=== PATIENT | male | born 1965 | race Caucasian/White ===

== ENCOUNTER 2023-09-18 17:32 | Emergency (ER) | payer OTHER ==
[~2023-09-18] VITALS: Ht 172.7 cm; Wt 72.6 kg
[2023-09-18 17:35] VITALS: BP 140/76; PULSE 80; RESP 16; TEMP 98.5; O2SAT 98
[2023-09-18] MEDS: BACITRACIN OINT 500 UNITS/GM PKT TP ONE (18:41)
[2023-09-18 20:44] VITALS: BP 134/76; PULSE 88; RESP 18; TEMP 97.5; O2SAT 98
== END 2023-09-18 20:44 | disposition home or self-care (01) ==
LOC: MED 17:32
DX: S61.411A Laceration without foreign body of right hand, initial encounter (principal); F10.129 Alcohol abuse with intoxication, unspecified; Y90.9 Presence of alcohol in blood, level not specified; X58.XXXA Exposure to other specified factors, initial encounter; Y93.89 Activity, other specified; Y92.89 Other specified places as the place of occurrence of the external cause; Y99.8 Other external cause status
CPT/HCPCS: 73130; 99283; Q0092